=== PATIENT | female | born 1990 | race Caucasian/White ===

== ENCOUNTER 2017-05-30 16:22 | Emergency (ER) | payer SELFPAY ==
[2017-05-30 18:07] LABS: HCG SERUM NEGATIVE (NEGATIVE)
[2017-05-30 19:20] LABS: BASOPHILS 0.1 % (0-2); EOSINOPHILS 0.2 % (0-7); HEMATOCRIT 43.1 % (36.0-48.0); HEMOGLOBIN 13.9 g/dL (12-16); IMMATURE GRANULOCYTES 0.4 % (0-5); LYMPHOCYTES 17.4 % (15-50); MCH 30.2 pg (26.0-34.0); MCHC 32.3 g/dL (31.0-37.0); MCV 93.7 fL (80.0-100.0); MEAN PLATELET VOLUME 10.3 fL (7.4-10.4); MONOCYTES 6.8 % (2-11); NEUTROPHILS 75.1 % (40-80); PLATELET COUNT 307 10x3/uL (130-400); WBC 11.4 10x3/uL (4.8-10.8)
[2017-05-30 19:32] LABS: ALBUMIN 3.8 g/dL (3.4-5.0); ALKALINE PHOSPHATASE 76 U/L (46-116); ALT (SGPT) 16 U/L (10-68); BILIRUBIN - TOTAL 0.31 mg/dL (0.2-1.3); CALC OSMOLALITY 277 mosm/kg (275-300); CALCIUM 9.2 mg/dL (8.5-10.1); CARBON DIOXIDE 27.1 mmol/L (21.0-32.0); CHLORIDE - SERUM 103 mmol/L (98-107); CREATININE - SERUM 0.8 mg/dL (0.6-1.3); GLUCOSE 92 mg/dL (74-106); POTASSIUM - SERUM 3.9 mmol/L (3.5-5.1); PROTEIN - SERUM 7.1 g/dL (6.4-8.2); SODIUM 139 mmol/L (136-145); UREA NITROGEN 12 mg/dL (7-18); eGFR NON AFRICAN AMERICAN > 90 mL/min (90-120)
[2017-05-30 20:04] LABS: APPEARANCE HAZY (CLEAR); BILIRUBIN NEGATIVE (NEGATIVE); COLOR YELLOW (YELLOW); GLUCOSE NEGATIVE (NEGATIVE); KETONE NEGATIVE (NEGATIVE); NITRITE NEGATIVE (NEGATIVE); PROTEIN TRACE mg/dL (NEGATIVE); UROBILINOGEN NORMAL (NORMAL); WHITE CELLS - URINE 25-50 /hpf (0-5)
[2017-05-30 20:06] LABS: BACTERIA MANY /hpf (NONE SEEN)
[2017-05-30 21:44] LABS: UDS - AMPHET POSITIVE QUAL (NEGATIVE); UDS - BARB NEGATIVE QUAL (NEGATIVE); UDS - BENZO NEGATIVE QUAL (NEGATIVE); UDS - COCAINE NEGATIVE QUAL (NEGATIVE); UDS - OPIATE NEGATIVE QUAL (NEGATIVE); UDS - PCP NEGATIVE QUAL (NEGATIVE); UDS - THC NEGATIVE QUAL (NEGATIVE)
== END 2017-05-30 23:00 | disposition home or self-care (01) ==
LOC: D.ER 16:22
PROVIDERS: Family Medicine; Physician Assistant
DX: F22 Delusional disorders (principal); F23 Brief psychotic disorder; N39.0 Urinary tract infection, site not specified; F15.90 Other stimulant use, unspecified, uncomplicated; F17.200 Nicotine dependence, unspecified, uncomplicated

== ENCOUNTER 2017-07-20 18:30 | Emergency (ER) | payer MEDICAID ==
[2017-07-20 19:11] LABS: APPEARANCE HAZY (CLEAR); COLOR YELLOW (YELLOW); SPECIFIC GRAVITY 1.025 (1.005-1.020)
[2017-07-20 19:12] LABS: BILIRUBIN NEGATIVE (NEGATIVE); EPITHELIAL CELLS 0-5 /hpf (0-5); GLUCOSE NEGATIVE (NEGATIVE); KETONE LARGE mg/dL (NEGATIVE); NITRITE NEGATIVE (NEGATIVE); PROTEIN TRACE mg/dL (NEGATIVE); RED CELLS - URINE OCC /hpf (0-5); UROBILINOGEN NORMAL (NORMAL); WHITE CELLS - URINE >50 /hpf (0-5)
[2017-07-20 19:13] LABS: BACTERIA MANY /hpf (NONE SEEN)
[2017-07-20 19:16] LABS: BASOPHILS 0.1 % (0-2); EOSINOPHILS 0.6 % (0-7); HEMATOCRIT 42.7 % (36.0-48.0); HEMOGLOBIN 14.4 g/dL (12-16); IMMATURE GRANULOCYTES 0.3 % (0-5); LYMPHOCYTES 27.7 % (15-50); MCH 30.7 pg (26.0-34.0); MCHC 33.7 g/dL (31.0-37.0); MEAN PLATELET VOLUME 9.3 fL (7.4-10.4); MONOCYTES 7.7 % (2-11); NEUTROPHILS 63.6 % (40-80); PLATELET COUNT 271 10x3/uL (130-400); RBC 4.69 10x6/uL (4.00-5.40)
[2017-07-20 19:39] LABS: ALBUMIN 3.7 g/dL (3.4-5.0); ALKALINE PHOSPHATASE 73 U/L (46-116); ALT (SGPT) 115 U/L (10-68); BILIRUBIN - TOTAL 0.74 mg/dL (0.2-1.3); CALC OSMOLALITY 274 mosm/kg (275-300); CALCIUM 8.5 mg/dL (8.5-10.1); CARBON DIOXIDE 21.3 mmol/L (21.0-32.0); CHLORIDE - SERUM 102 mmol/L (98-107); CREATININE - SERUM 0.9 mg/dL (0.6-1.3); GLUCOSE 106 mg/dL (74-106); POTASSIUM - SERUM 3.2 mmol/L (3.5-5.1); PROTEIN - SERUM 7.6 g/dL (6.4-8.2); SODIUM 137 mmol/L (136-145); UREA NITROGEN 16 mg/dL (7-18); eGFR NON AFRICAN AMERICAN 80 mL/min (90-120)
[2017-07-20 19:46] LABS: HCG - QUANTITATIVE (MATERNAL) 0 mIU/mL
[2017-07-20 20:02] LABS: UDS - AMPHET POSITIVE QUAL (NEGATIVE); UDS - BARB NEGATIVE QUAL (NEGATIVE); UDS - BENZO NEGATIVE QUAL (NEGATIVE); UDS - COCAINE NEGATIVE QUAL (NEGATIVE); UDS - OPIATE NEGATIVE QUAL (NEGATIVE); UDS - PCP NEGATIVE QUAL (NEGATIVE); UDS - THC POSITIVE QUAL (NEGATIVE)
== END 2017-07-21 00:13 | disposition short-term general hospital (02) ==
LOC: D.ER 18:30
PROVIDERS: Emergency Medicine
DX: F23 Brief psychotic disorder (principal); F15.10 Other stimulant abuse, uncomplicated; F12.10 Cannabis abuse, uncomplicated; F22 Delusional disorders; F17.200 Nicotine dependence, unspecified, uncomplicated

== ENCOUNTER 2017-10-01 08:11 | Emergency (ER) | payer MEDICAID ==
[~2017-10-01] VITALS: Ht 157.5 cm; Wt 81.8 kg
[2017-10-01 08:18] VITALS: Ht 157.5 cm; Wt 81.8 kg
[2017-10-01] MEDS ORDERED: CELEXA20 MG PO ×2 (08:19→10:21)
[2017-10-01] MEDS ORDERED: INVEGA6 MG/BLIST PO ×2 (08:19→10:21)
[2017-10-01 11:22] VITALS: BP 130/85
== END 2017-10-01 11:22 | disposition home or self-care (01) ==
LOC: D.ER 08:11
DX: F25.9 Schizoaffective disorder, unspecified (principal); Z86.59 Personal history of other mental and behavioral disorders; F17.200 Nicotine dependence, unspecified, uncomplicated

== ENCOUNTER 2018-04-07 16:06 | Emergency (ER) | payer OTHER ==
[~2018-04-07] VITALS: Ht 157.5 cm; Wt 81.8 kg
[~2018-04-07 16:06] MED LIST: CELEXA20 MG PO; INVEGA6 MG/BLIST PO
[2018-04-07 16:26] VITALS: BP 126/80; Ht 157.5 cm; Wt 81.8 kg
[2018-04-07] MEDS ORDERED: MECLIZINE HCL25 MG PO (17:19)
== END 2018-04-07 18:15 | disposition home or self-care (01) ==
LOC: D.ER 16:06
DX: R42 Dizziness and giddiness (principal); F17.200 Nicotine dependence, unspecified, uncomplicated

== ENCOUNTER 2018-04-10 18:57 | Emergency (ER) | payer OTHER ==
[~2018-04-10] VITALS: Ht 157.5 cm; Wt 90.9 kg
[~2018-04-10 18:57] MED LIST changes: +MECLIZINE HCL25 MG PO
[2018-04-10 19:14] VITALS: Ht 157.5 cm; Wt 90.9 kg
[2018-04-10 19:37] LABS: HCG URINE NEGATIVE (NEGATIVE)
[2018-04-10 19:38] LABS: BASOPHILS 0.3 % (0-2); EOSINOPHILS 0.8 % (0-7); HEMATOCRIT 48.1 % (36.0-48.0); HEMOGLOBIN 15.6 g/dL (12-16); IMMATURE GRANULOCYTES 0.3 % (0-5); LYMPHOCYTES 30.8 % (15-50); MCH 31.4 pg (26.0-34.0); MCHC 32.4 g/dL (31.0-37.0); MCV 96.8 fL (80.0-100.0); MEAN PLATELET VOLUME 9.8 fL (7.4-10.4); MONOCYTES 4.4 % (2-11); NEUTROPHILS 63.4 % (40-80); PLATELET COUNT 283 10x3/uL (130-400); RBC 4.97 10x6/uL (4.00-5.40); RDW 13.7 % (11.5-14.5); WBC 7.7 10x3/uL (4.8-10.8)
[2018-04-10 19:42] LABS: UDS - AMPHET POSITIVE QUAL (NEGATIVE); UDS - BARB NEGATIVE QUAL (NEGATIVE); UDS - BENZO NEGATIVE QUAL (NEGATIVE); UDS - COCAINE NEGATIVE QUAL (NEGATIVE); UDS - OPIATE NEGATIVE QUAL (NEGATIVE); UDS - PCP NEGATIVE QUAL (NEGATIVE); UDS - THC POSITIVE QUAL (NEGATIVE)
[2018-04-10 19:53] LABS: APPEARANCE HAZY (CLEAR); BILIRUBIN NEGATIVE (NEGATIVE); COLOR YELLOW (YELLOW); GLUCOSE NEGATIVE (NEGATIVE); KETONE NEGATIVE (NEGATIVE); NITRITE NEGATIVE (NEGATIVE); PROTEIN NEGATIVE (NEGATIVE); UROBILINOGEN NORMAL (NORMAL)
[2018-04-10 19:54] LABS: ALBUMIN 3.2 g/dL (3.4-5.0); ALKALINE PHOSPHATASE 77 U/L (46-116); ALT (SGPT) 32 U/L (10-68); BACTERIA FEW /hpf (NONE SEEN); BILIRUBIN - TOTAL 0.29 mg/dL (0.2-1.3); CALC OSMOLALITY 278 mosm/kg (275-300); CALCIUM 8.6 mg/dL (8.5-10.1); CARBON DIOXIDE 29.4 mmol/L (21.0-32.0); CHLORIDE - SERUM 106 mmol/L (98-107); CREATININE - SERUM 0.9 mg/dL (0.6-1.3); EPITHELIAL CELLS 0-5 /hpf (0-5); GLUCOSE 88 mg/dL (74-106); POTASSIUM - SERUM 4.6 mmol/L (3.5-5.1); PROTEIN - SERUM 7.1 g/dL (6.4-8.2); RED CELLS - URINE RARE /hpf (0-5); SODIUM 141 mmol/L (136-145); UREA NITROGEN 11 mg/dL (7-18); eGFR NON AFRICAN AMERICAN 80 mL/min (90-120)
[2018-04-10 21:36] VITALS: BP 118/79
== END 2018-04-10 21:51 ==
LOC: D.ER 18:57
PROVIDERS: Family Medicine
DX: F25.9 Schizoaffective disorder, unspecified (principal); F31.9 Bipolar disorder, unspecified

== ENCOUNTER 2018-05-02 22:04 | Emergency (ER) | payer OTHER ==
[~2018-05-02] VITALS: Ht 157.5 cm; Wt 90.9 kg
[2018-05-02 22:06] VITALS: Ht 157.5 cm; Wt 90.9 kg
[2018-05-02] MEDS ORDERED: SEROQUEL25 MG (22:07)
[2018-05-02] MEDS ORDERED: DEPAKOTE125 MG (22:08)
[2018-05-02] MEDS ORDERED: CELEXA10 MG (22:08)
[2018-05-02] MEDS ORDERED: SEROQUEL200 MG PO (22:12)
[2018-05-02] MEDS ORDERED: CELEXA20 MG PO (22:13)
[2018-05-02] MEDS ORDERED: DEPAKOTE500 MG PO (22:13)
[2018-05-02] MEDS ORDERED: BENZTROPINE MESY2 MG PO (22:13)
[2018-05-02] MEDS ORDERED: INVEGA1.5 MG PO (22:13)
[2018-05-02 23:08] LABS: APPEARANCE CLEAR (CLEAR); COLOR YELLOW (YELLOW)
[2018-05-02 23:09] LABS: BACTERIA MANY /hpf (NONE SEEN); BILIRUBIN NEGATIVE (NEGATIVE); EPITHELIAL CELLS RARE /hpf (0-5); GLUCOSE NEGATIVE (NEGATIVE); KETONE LARGE mg/dL (NEGATIVE); NITRITE POSITIVE (NEGATIVE); PROTEIN TRACE mg/dL (NEGATIVE); RED CELLS - URINE 0-5 /hpf (0-5); UROBILINOGEN NORMAL (NORMAL); WHITE CELLS - URINE >50 /hpf (0-5)
[2018-05-02 23:14] LABS: UDS - AMPHET POSITIVE QUAL (NEGATIVE); UDS - BARB NEGATIVE QUAL (NEGATIVE); UDS - BENZO NEGATIVE QUAL (NEGATIVE); UDS - COCAINE POSITIVE QUAL (NEGATIVE); UDS - OPIATE NEGATIVE QUAL (NEGATIVE); UDS - PCP NEGATIVE QUAL (NEGATIVE); UDS - THC POSITIVE QUAL (NEGATIVE)
[2018-05-02] MEDS ORDERED: MACROBID100 MG PO (23:29)
[2018-05-03 01:25] VITALS: BP 112/76
== END 2018-05-03 01:26 | disposition home or self-care (01) ==
LOC: D.ER 22:04
PROVIDERS: Family Medicine
DX: N39.0 Urinary tract infection, site not specified (principal); F41.0 Panic disorder [episodic paroxysmal anxiety]; F19.10 Other psychoactive substance abuse, uncomplicated; R06.02 Shortness of breath; G40.909 Epilepsy, unspecified, not intractable, without status epilepticus; F17.200 Nicotine dependence, unspecified, uncomplicated

== ENCOUNTER 2018-05-13 09:17 | Emergency (ER) | payer OTHER ==
[~2018-05-13] VITALS: Ht 157.5 cm; Wt 94.5 kg
[~2018-05-13 09:17] MED LIST changes: +BENZTROPINE MESY2 MG PO; +CELEXA10 MG; +DEPAKOTE125 MG; +DEPAKOTE500 MG PO; +INVEGA1.5 MG PO; +MACROBID100 MG PO; +SEROQUEL200 MG PO; +SEROQUEL25 MG
[2018-05-13 09:28] VITALS: BP 126/96; Ht 157.5 cm; Wt 94.5 kg
[2018-05-13 10:34] LABS: BASOPHILS 0.2 % (0-2); EOSINOPHILS 0 % (0-7); HEMATOCRIT 40.5 % (36.0-48.0); HEMOGLOBIN 13.3 g/dL (12-16); IMMATURE GRANULOCYTES 0.2 % (0-5); LYMPHOCYTES 12.6 % (15-50); MCH 30.9 pg (26.0-34.0); MCHC 32.8 g/dL (31.0-37.0); MEAN PLATELET VOLUME 9.4 fL (7.4-10.4); MONOCYTES 10.3 % (2-11); NEUTROPHILS 76.7 % (40-80); RBC 4.31 10x6/uL (4.00-5.40); RDW 14.1 % (11.5-14.5); WBC 5.5 10x3/uL (4.8-10.8)
[2018-05-13 10:35] LABS: HCG SERUM NEGATIVE (NEGATIVE)
[2018-05-13 10:37] LABS: PLATELET COUNT 226 10x3/uL (130-400)
[2018-05-13 10:42] LABS: ALBUMIN 3.2 g/dL (3.4-5.0); ANION GAP 10.3 mmol/L (8-16); BILIRUBIN - TOTAL 0.49 mg/dL (0.2-1.3); CALCIUM 8.4 mg/dL (8.5-10.1); CARBON DIOXIDE 27.9 mmol/L (21.0-32.0); POTASSIUM - SERUM 4.2 mmol/L (3.5-5.1)
[2018-05-13 11:55] LABS: APPEARANCE HAZY (CLEAR); BILIRUBIN NEGATIVE (NEGATIVE); COLOR YELLOW (YELLOW); GLUCOSE NEGATIVE (NEGATIVE); KETONE NEGATIVE (NEGATIVE); NITRITE NEGATIVE (NEGATIVE); PROTEIN NEGATIVE (NEGATIVE); UROBILINOGEN NORMAL (NORMAL)
[2018-05-13 11:57] LABS: BACTERIA MODERATE /hpf (NONE SEEN); EPITHELIAL CELLS 0-5 /hpf (0-5); MUCUS <1+ /lpf (NONE SEEN)
[2018-05-13 12:12] LABS: UDS - AMPHET POSITIVE QUAL (NEGATIVE); UDS - BARB NEGATIVE QUAL (NEGATIVE); UDS - BENZO NEGATIVE QUAL (NEGATIVE); UDS - COCAINE POSITIVE QUAL (NEGATIVE); UDS - OPIATE NEGATIVE QUAL (NEGATIVE); UDS - PCP NEGATIVE QUAL (NEGATIVE); UDS - THC POSITIVE QUAL (NEGATIVE)
[2018-05-13] MEDS ORDERED: MACROBID100 MG PO (12:33)
== END 2018-05-13 13:01 | disposition home or self-care (01) ==
LOC: D.ER 09:17
PROVIDERS: Family Medicine
DX: T76.21XA Adult sexual abuse, suspected, initial encounter (principal); Z20.2 Contact with and (suspected) exposure to infections with a predominantly sexual mode of transmission; N39.0 Urinary tract infection, site not specified